=== PATIENT | female | born 1960 | race Caucasian/White ===

== ENCOUNTER 2025-05-02 08:25 | Emergency (ER) | payer MEDICARE, OTHER, SELFPAY ==
--- NOTE | ~2025-05-02 | XR_ITS ---
Examination: XR chest 2V Clinical History: n/v, low temp Comparison: None Technique: PA and Lateral Findings: Cardiomediastinal silhouette normal size and configuration. Lungs clear. No acute bony abnormality. IMPRESSION: 1. No acute cardiopulmonary findings. Reviewed, dictated and finalized at location R. CUTTER
--- NOTE | ~2025-05-02 | CT_ITS ---
EXAM/PROCEDURE: CT abdomen pelvis w con HISTORY: nausea/vomiting; low temp COMPARISON: None available. TECHNIQUE: IV contrast enhanced CT of the abdomen and pelvis FINDINGS: In the lower chest subsegmental atelectatic changes are present bilaterally. Heart size normal with no pericardial effusion. In the abdomen and pelvis, the bowel gas pattern is nonobstructive with no free air free fluid or pneumatosis. Indwelling urethral catheter present with urinary bladder nondistended. Bubbles of air in the nondependent urinary bladder likely associated with catheterization. Anteflex uterus and adnexal regions unremarkable. Moderate amount of stool extends to the cecum. Normal size aorta and appendix. Moderately extensive aphthous chronic calcification. No acute arterial occlusion seen. No hydroureteronephrosis. Right-sided renal cystic appearing lesions noted. No gross CT evidence of acute cholecystitis or pancreatitis. The stomach is unopacified and nondistended but no obvious acute abnormality seen. Small hiatal hernia with patulous esophagus seen. 8 mm low-density lesion in the liver image 62 axial series. The bones appear intact. Degenerative changes present throughout the thoracolumbar spine. IMPRESSION: 1. No focal acute process seen to explain source of patient's symptoms. Indwelling catheter with air in the urinary bladder; correlate with urinalysis. 2. Bibasilar subsegmental atelectatic changes. 3. 8 mm liver lesion statistically most likely represent benign cyst. Small right-sided renal cysts also present. Reviewed, dictated and finalized at location A. DBIRTH EDUCATOR IMPRESSION: 1. No focal acute process seen to explain source of patient's symptoms. Indwell ing catheter with air in the urinary bladder; correlate with urinalysis. 2. Bibasilar subsegmental atelectatic changes. 3. 8 mm liver lesion statistically most likely represent benign cyst. Small rig ht-sided renal cysts also present.
[2025-05-02 08:28] VITALS: BP 132/65; PULSE 56; RESP 16; TEMP 35.4; O2SAT 100
--- NOTE | 2025-05-02 08:43 | ECG_ITS ---
Test Date: 2025-05-02 08:47:05 Measurements Intervals [place] Rate: 55 P: 31 [place]: 212 QRS: 12 QRSD: 105 T: 16 QT: 526 QTc: 506 Interpretive Statements SINUS BRADYCARDIA WITH FIRST DEGREE AV BLOCK INCOMPLETE RIGHT BUNDLE BRANCH BLOCK MODERATE T-WAVE ABNORMALITY, CONSIDER ANTERIOR ISCHEMIA BASELINE ARTIFACT- V3 ABNORMAL ECG No previous ECG available for comparison Electronically Signed On 05-02-2025 09:34:39 [employer] by Jerrell Leal D.O.
[2025-05-02] MEDS: METOCLOPRAMIDE HCL INJ 10 MG/2 ML VIAL IV PUSH (08:48)
[2025-05-02 08:54] LABS: Hematocrit 40.6 % (37.0-47.0); Hemoglobin 14.0 g/dL (12.0-15.0); Immature Granulocyte Percent A 0.3 % (0-0.5); Lymphocytes Absolute Auto 1.18 K/mm3 (0.9-3.2); Mean Corpuscular HGB Conc 34.5 g/dl (32-36); Mean Corpuscular Hemoglobin 33.0 pg (26-34); Mean Corpuscular Volume 95.8 fl (80-100); Nucleated Red Blood Cells Absolute Auto 0.000 K/mm3 (0.0-0.012); Nucleated Red Blood Cells Perc 0.0 % (0.0-0.2); Platelet Count Result 234 k/mm3 (150-375); Red Blood Count 4.24 M/mm3 (4.2-5.4); White Blood Count 9.6 K/mm3 (4.5-10.0)
--- NOTE | 2025-05-02 09:14 | ED_ITS ---
HPI - Nausea/Vomiting/Diarrhea General Chief complaint: Nausea/Vomiting/Diarrhea Stated complaint: vomiting Time Seen by Provider: 05/02/25 08:31 History of Present Illness HPI Narrative: Patient has been having dental work done, started on antibiotics and tramadol by her dentist, and this morning threw up several times, EMS arrived and gave her a dose of Zofran and fluids, patient still nauseous. Denies any abdominal pain Related Data Allergies Allergy/AdvReac Type Severity Reaction Status Date / Time No Known Allergies Allergy Verified 05/02/25 08:38 Review of Systems 2 Review of Systems: All systems reviewed & are unremarkable except as noted in HPI and below Exam 2 Narrative: EXAMINATION OF ORGAN SYSTEMS/BODY AREAS: Constitutional: Vital signs per nursing GENERAL: Appears uncomfortable and nauseous HEAD: Normal with no signs of head trauma. EYES: EOMI, conjunctiva normal ENT: Some dental caries without any obvious fluctuance or abscess palpable LUNGS: Nonlabored breathing. HEART: Regular rate and rhythm ABD: Soft, nontender to palpation EXT: Normal range of motion SKIN: No rashes or lesions. NEURO: Alert. No gross focal sensory or strength deficits. PSYCH: Normal affect Course Vital Signs Vital signs: Vital Signs Temperature 95.8 F L 05/02/25 08:28 Pulse Rate 56 L 05/02/25 08:28 Respiratory Rate 16 05/02/25 08:28 Blood Pressure 132/65 05/02/25 08:28 Pulse Oximetry 100 05/02/25 08:28 Oxygen Delivery Room Air 05/02/25 08:28 Temperature 96.9 F L 05/02/25 10:36 Pulse Rate 53 L 05/02/25 10:36 Respiratory Rate 12 05/02/25 10:36 Blood Pressure 130/63 05/02/25 10:36 Pulse Oximetry 95 05/02/25 10:36 Oxygen Delivery Nasal Cannula 05/02/25 09:16 Oxygen Flow Rate 4 05/02/25 09:16 [facility] MDM Narrative Medical decision making narrative: Patient presenting here with nausea vomiting, got Zofran and fluids with EMS but still quite nauseous. I did therefore order a dose of Reglan and Benadryl, the unfortunately this was quite sedating for the patient who fell sleep, chest x-ray and CT without obvious acute abnormality, labs within acceptable limits, on re-evaluation patient feels much better. Comfortable with outpatient management return precautions with prescriptions for Zofran. Family at bedside. Differential Diagnosis Differential Diagnosis: Gastritis, medication side effect, SBO, sepsis, etc. Lab Data 05/02/25 08:47 05/02/25 08:47 Labs: Lab Results 05/02/25 05/02/25 Range/Units 08:47 10:06 WBC 9.6 (4.5-10.0) K/mm3 RBC 4.24 (4.2-5.4) M/mm3 Hgb 14.0 (12.0-15.0) g/dL Hct 40.6 (37.0-47.0) % MCV 95.8 (80-100) fl MCH 33.0 (26-34) pg MCHC 34.5 (32-36) g/dl RDW 12.2 (11.5-14.5) % Plt Count 234 (150-375) k/mm3 MPV 9.1 (7.4-10.4) fl Immature Gran % (Auto) 0.3 (0-0.5) % Neut % (Auto) 75.9 H (45.5-73.1) % Lymph % (Auto) 12.3 L (18.3-44.2) % Sanders % (Auto) 9.2 H (2.6-8.5) % Eos % (Auto) 1.9 (0-4.4) % Baso % (Auto) 0.4 (0.2-1.2) % Lymph # (Auto) 1.18 (0.9-3.2) K/mm3 Sanders # (Auto) 0.9 H (0.1-0.6) K/mm3 Eos # (Auto) 0.2 (0-0.3) K/mm3 Baso # (Auto) 0.0 (0.0-0.1) K/mm3 Abs Immat Gran (auto) 0.03 (0.00-0.031) K/mm3 Absolute Neuts (auto) 7.3 H (1.3-6.7) K/mm3 Absolute Nucleated RBC 0.000 (0.0-0.012) K/mm3 Nucleated RBC % 0.0 (0.0-0.2) % Sodium 134 L (137-145) mmol/L Potassium 4.0 (3.4-5.0) mmol/L Chloride 100 (98-107) mmol/L Carbon Dioxide 24 (22-30) mmol/L Anion Gap 10 (4-12) mmol/L BUN 19 H (7-17) mg/dL Creatinine 1.21 H (0.7-1.0) mg/dL Estim Creat Clear Calc 40 ml/min Estimated GFR 45 L (59 - ) Glucose 128 H (65-110) mg/dL Lactic Acid 1.8 1.2 (0.7-2.0) mmol/L Calcium 8.9 (8.4-10.2) mg/dL Total Bilirubin 1.4 H (0.2-1.3) mg/dL AST 27 (14-36) U/L ALT 18 (6-35) U/L Alkaline Phosphatase 84 (38-126) U/L Troponin I < 0.012 (0.000-0.034) ng/mL Total Protein 7.2 (6.3-8.2) g/dL Albumin 4.1 (3.5-5.1) g/dL Lipase 51 (23-300) U/L Urine Color Yellow (Yellow) Urine Appearance Clear (Clear) Urine pH 7.0 (5.0-9.0) Ur Specific [place] 1.014 (1.001-1.035) Urine Protein Trace (Negative) mg/dL Urine Glucose (UA) Negative (Negative) mg/dL Urine Ketones 1+ H (Negative) mg/dL Ur Blood (Man) Negative (Negative) Urine Nitrate Negative (Negative) Urine Bilirubin Negative (Negative) Urine Urobilinogen 0.2 (<2.0) mg/dL Add Ur Microanalysis Reviewed Leukocyte Esterase Rfl Negative (Negative) SONG/UL Urine RBC 0-2 (0-2) /hpf Urine WBC 0-5 (0-3) /hpf Ur Squamous Epith Cells Occasional (Few) /hpf Urine Bacteria None seen /hpf Urine Casts 11-20 Imaging Data Radiologist's impression: ITS Impressions Abdomen/Pelvis CT 05/02/25 11:06 IMPRESSION: 1. No focal acute process seen to explain source of patient's symptoms. Indwelling catheter with air in the urinary bladder; correlate with urinalysis. 2. Bibasilar subsegmental atelectatic changes. 3. 8 mm liver lesion statistically most likely represent benign cyst. Small right-sided renal cysts also present. Chest X-Ray 05/02/25 11:40 IMPRESSION: 1. No acute cardiopulmonary findings. Discharge Plan Discharge Clinical Impression: Nausea and vomiting Patient Disposition: Home Condition: Stable Instructions: Acute Nausea and Vomiting (ED) Additional Instructions: Please follow up with your doctor; you can always return for any further issues. Patient Language: Martiniquais Prescriptions: New ondansetron 4 mg tablet,disintegrating 4 mg PO Q8H PRN (Reason: nausea and vomiting) Qty: 10 0RF Follow-up/Referrals: Vito,MD Damian [Primary Care Provider, Unknown] - 3 Days
[2025-05-02 09:16] VITALS: BP 129/58; PULSE 59; RESP 15; O2SAT 96
[2025-05-02 09:20] LABS: Alanine Aminotransferase 18 U/L (6-35); Albumin Level 4.1 g/dL (3.5-5.1); Alkaline Phosphatase 84 U/L (38-126); Anion Gap 10 mmol/L (4-12); Aspartate Amino Transferase 27 U/L (14-36); Bilirubin,Total 1.4 mg/dL (0.2-1.3); Blood Urea Nitrogen 19 mg/dL (7-17); Calcium 8.9 mg/dL (8.4-10.2); Carbon Dioxide 24 mmol/L (22-30); Chloride 100 mmol/L (98-107); Estimated CRCL calculation 40 ml/min; Estimated Glomerular Filt Rate 45; Glucose 128 mg/dL (65-110); Lipase 51 U/L (23-300); Potassium 4.0 mmol/L (3.4-5.0); Sodium 134 mmol/L (137-145); Total Protein 7.2 g/dL (6.3-8.2)
[2025-05-02 09:31] LABS: Troponin I < 0.012 ng/mL (0.000-0.034)
[2025-05-02 09:58] VITALS: TEMP 35.2
[2025-05-02 10:26] LABS: Add Urine Microscopic? YES; Appearance Urine Clear (Clear); Glucose Urine UA Negative (Negative); Leukocyte Esterase Ur Negative LEU/UL (Negative); Need Manual Microscopic Reviewed; Nitrate Urine Negative (Negative); Specific Grav Ur 1.014 (1.001-1.035)
[2025-05-02 10:36] VITALS: BP 130/63; PULSE 53; RESP 12; TEMP 36.1; O2SAT 95
--- OUTSIDE RECORDS SUMMARY | 2025-05-02 12:09 | XMS_ITS | Clinical Summary ---
Author Organization [facility] Address [address] [place] [address] Care Team Providers Care Outreach Worker Name Role Phone Vinh Snyder MD Primary Care Provider [phone] Source Comments [facility],non-owned Affiliates and Associated Physician Practices is amultiple site organization consisting of ambulatory clinics and hospital sitesin [place], [place], [place] and [place]. This disclosure is being madepursuant to the Care Everywhere program and may not contain all information available regarding this patient. Last updated 18.[facility] Allergies No known active allergies Medications * Be aware that medications may not be up to date on this document. Alwaysverify current medications with the patient. LEVOTHYROXINE SODIUM PO Active folic acid (FOLVITE) 1 MG tablet Take 1 mg by mouth once daily Active atorvastatin (LIPITOR) 10 MG tablet Take 10 mg by mouth at bedtime Active amLODIPine (NORVASC) 5 MG tablet Take 5 mg by mouth once daily Active lisinopril-hydr oCHLOROthiazide (PRINZIDE; ZESTORETIC) 20-12.5 MG tablet Take 1 tablet by mouth once daily Active ALPRAZolam (XANAX) 0.5 MG tablet Take 0.5 mg by mouth 3 times daily as needed for Anxiety Active Active Problems Problem Noted Date Diagnosed Date Obesity 03/05/2015 Hypothyroidism 03/05/2015 Abnormal levels of other serum enzymes 5 Anxiety disorder 03/05/2015 Obstructive sleep apnea 03/05/2015 Overview (08/17/2017): Using CPAP since about 2011 Hyperlipidemia 03/05/2015 Essential (primary) hypertension 03/05/2015 Major depressive disorder, single episode 2014 Family History Medical History Relation Name Comments None Known Brother Status: Alive COPD - Chronic Obstructive Pulmonary Disease Father Status: Elevated Lipids Father Hyperlipidemia Father Hypertension Father Kidney Disease Father Dementia Mother Status: Alive Hyperlipidemia Mother Hypertension Mother Relation Name Status Comments Brother Father Mother Social History Tobacco Use Types Packs/Day Years Used Date Smoking Tobacco: Former Cigarettes 2 Q uit: 11/04/2008 Smokeless Tobacco: Never Alcohol Use Standard Drinks/Week Comments Yes 2.5 (1 standard drink = 0.6 oz p ure alcohol) Comments No Sex and Gender Information Value Date Recorded Sex Assigned at Not on file Legal Sex Female 5:46 PM RECOVERY OPERATOR HELPER Gender Identity Not on file Sexual Orientation Not on file Last Filed Vital Signs Vital Sign Reading Time Taken Comments Blood Pressure 126/78 01/17/2018 11:48 AM CDT Pulse 70 01/17/2018 11:48 AM CDT Temperature 37.1 C (98.7 F) 01/17/2018 11:48 AM CDT Respiratory Rate 16 01/17/2018 11:48 AM CDT Oxygen Saturation 96% 01/17/2018 11:48 AM CDT Inhaled Oxygen Concentration - - Weight 98.4 kg (217 lb) 01/17/2018 11:48 AM CDT Height 160 cm (5' 3) 01/17/2018 11:48 AM CDT Body Mass Index 38.44 01/17/2018 11:48 AM CDT Plan of Treatment Health Maintenance Due Date Last Done Comments BONE DENSITY TESTING 1960 COLOGUARD (AGES 45-75) - COL ON CA SCREENING 1958 COLON MONITORING 1958 COLONOSCOPY - COLON CA SCREENING 1958 CT COLONOGRAPHY - COLON CA SCREENING 1960 Colorectal Cancer Screening 1958 FIT - COLON CA SCREENING 1958 FLEX SIG - COLON CA SCREENING 1958 MAMMOGRAM 1958 DTAP/TDAP/TD VACCINES (1 - Tdap) 1977 PNEUMOCOCCAL VACCINE 50+ (1 of 1 - PCV) 2008 ZOSTER VACCINE (1 of 2) 2008 SCREENING FOR DIABETES 05/22/2018 6, 05/22/2015 DEPRESSION SCREENING 05/18/2024 COVID-19 VACCINE (1 - 2024-2 6 season) 2025 INFLUENZA VACCINE (#1) 2025 Respiratory Syncytial Virus (RSV) Vaccine Pt: or over 60 yrs (1 - 1-dose 75+ series) 2033 HEPATITIS C SCREENING Completed 05/22/2015 HEPATITIS B VACCINE Aged Out No longe r eligible based on patient's age to complete this topic HIB VACCINE Aged Out No longer eligi ble based on patient's age to complete this topic HPV VACCINE Aged Out No longer eligi ble based on patient's age to complete this topic MENINGOCOCCAL (Group B) VACCINE SHARED DECISION-MAKING Aged Out No longer eligible based on patient's age to complete this topic MENINGOCOCCAL GROUPS A/C/Y/W VACCINE Aged Out No longer eligible b ased on patient's age to complete this topic Procedures Procedure Name Priority Date/Time Associated Diagnosis Comments COMPREHENSIVE METABOLIC PANEL Routine 05/22/2015 9:16 AM RECOVERY OPERATOR HELPER HEPATITIS C ANTIBODY Routine 05/22/2015 9:16 AM RECOVERY OPERATOR HELPER from Last 3 Months or Most Recently Relevant to Health Maintenance Results * (ABNORMAL) COMPREHENSIVE METABOLIC PANEL (05/22/2015 9:16 AM RECOVERY OPERATOR HELPER) Glucose 127(H) 65 - 99 mg/dL [facility]) BUN 11 6 - 24 mg/dL [facility]) Creatinine 0.86 0.57 - 1.00 mg/dL [facility]) eGFR non- 76 >59 mL/min/1.7 3 [facility]) eGFR 87 >59 mL/min/1.7 3 [facility]) BUN/Creatinine Ratio 13 9 - 23 [facility]) Sodium 137 134 - 144 mmol/L [facility]) Potassium 5.3(H) 3.5 - 5.2 mmol/L [facility]) Chloride 95(L) 97 - 108 mmol/L [facility]) CO2 27 18 - 29 mmol/L [facility]) Calcium 9.7 8.7 - 10.2 mg/dL [facility] ([facility]) Protein Total 7.9 6.0 - 8.5 g/dL [facility] ([facility]) Albumin 4.7 3.5 - 5.5 g/dL [facility] ([facility]) Globulin Total 3.2 1.5 - 4.5 g/dL [facility] ([facility]) Albumin/Globulin Ratio 1.5 1.1 - 2.5 [facility] ([facility]) Bilirubin Total 0.6 0.0 - 1.2 mg/dL [facility] ([facility]) Alkaline Phosphatase 116 39 - 117 IU/L [facility] ([facility]) AST 20 0 - 40 IU/L [facility] ([facility]) ALT 23 0 - 32 IU/L [facility] ([facility]) Blood specimen (specimen) BLOOD SPECIMEN / Unknown 05/22/2015 9:16 AM RECOVERY OPERATOR HELPER 05/22/2015 10:53 PM RECOVERY OPERATOR HELPER Narrative [facility] ([facility]) - 05/24/2015 5:12 PM RECOVERY OPERATOR HELPER Performed at: [address] [place], [place] [id number] [place], [place] [id number] Collector Of Aquarium Specimens: Braden Malone PhD, Phone: [phone] Dameon Perea MD LAB - CHEMISTRY OR DERABLES Edited Result - Final [facility] ([facility]) [address] [place] [address], [facility] * HEPATITIS C ANTIBODY (05/22/2015 9:16 AM RECOVERY OPERATOR HELPER) Hepatitis C Virus Antibody <0.1 0.0 - 0.9 s/co ratio [facility] ([facility]) Comment: Negative: < 0.8 Indeterminate: 0.8 - 0.9 Positive: > 0.9 In order to reduce the incidence of a false positive result, the CDC recommends that all s/co ratios between 1.0 and 10.9 be confirmed by a more specific supplemental or PCR testing. [facility] offers HCV Ab w/Reflex to Verification test #[id number]. Blood specimen (specimen) BLOOD SPECIMEN / Unknown 05/22/2015 9:16 AM RECOVERY OPERATOR HELPER 05/22/2015 10:53 PM RECOVERY OPERATOR HELPER Narrative [facility] ([facility]) - 05/24/2015 5:12 PM RECOVERY OPERATOR HELPER [facility] [address] [place], [place] [id number] Collector Of Aquarium Specimens: Braden Malone PhD, Phone: [phone] Dameon Perea MD LAB - CHEMISTRY OR DERABLES Edited Result - Final [facility] ([facility]) [address] [place] [address], [facility] from Last 3 Months or Most Recently Relevant to Health Maintenance Insurance Care Teams Outreach Worker Relationship Specialty Start Date End Date Vinh Snyder MD [address] [place] [address] PCP - General 03/05/15
--- OUTSIDE RECORDS SUMMARY | 2025-05-02 12:09 | XMS_ITS | Clinical Summary ---
Author Organization [facility] Address [address] [place] [id number] Care Team Providers Care Steam Cleaner Name Role Phone Unavailable Primary Care Provider Unavailabl e Social History Tobacco Use Types Packs/Day Years Used Date Smoking Tobacco: Never Assessed Comments Unknown Sex and Gender Information Value Date Recorded Sex Assigned at Not on file Legal Sex Female 8:04 PM CDT Gender Identity Not on file Sexual Orientation Not on file Plan of Treatment Health Maintenance Due Date Last Done Comments Colorectal Cancer Screening Colonoscopy (10 Years) 1958 Hepatitis C 1976 DTaP, Tdap and Td Vaccines ( 1 - Tdap) 1977 Mammogram Screening 1998 Pneumococcal Vaccine: 50+ Ye ars (1 of 1 - PCV) 2008 Zoster Vaccines (1 of 2) 2008 Dexa Scan (General) 12/02/2023 COVID-19 Vaccine ( - 2024-2 6 season) 2025 Influenza Adult (#1) 2025 RSV Immunization or 60+ Years (1 - 1-dose 75+ series) 2033 Hepatitis A Vaccines Aged Out No long er eligible based on patient's age to complete this topic Meningococcal B Vaccine Aged Out No l onger eligible based on patient's age to complete this topic Meningococcal Vaccine Aged Out No alesha bright eligible based on patient's age to complete this topic RSV Immunizations Under 20 Months Aged Out No longer eligible based on patient's age to complete this topic
== END 2025-05-02 13:09 | disposition home or self-care (01) ==
PROVIDERS: Emergency Provider Emergency Medicine; PCP Family Medicine
DX: R11.2 Nausea with vomiting, unspecified (principal)
CPT/HCPCS: 36415; 71046; 74177; 80053; 81001; 83605; 83690; 84484; 85025; 87040; 93005; 96374; 96375; 99284; J1200; J2765; Q9967